=== PATIENT | female | born 1975 | race Caucasian/White ===

== ENCOUNTER 2021-05-12 08:42 | Day surgery (SDC) | payer OTHER ==
[~2021-05-12] VITALS: Ht 157.5 cm; Wt 60.3 kg
[2021-05-12] MEDS ORDERED: diphenhydrAMINE 50 MG/ML VIAL ONE (09:48)
[2021-05-12] MEDS ORDERED: MIDAZOLAM 5 MG/5 ML VIAL ONE ×2 (09:49→10:11)
[2021-05-12] MEDS ORDERED: LIDOCAINE 2% 100 MG/5 ML UJET TP ONE (09:49)
[2021-05-12] MEDS ORDERED: fentaNYL citrate 0.05 MG/ML VIAL ONE (09:49)
[2021-05-12] MEDS ORDERED: MIDAZOLAM 2 MG/2 ML VIAL IVP ONE (11:50)
[2021-05-12] MEDS ORDERED: fentaNYL citrate 0.05 MG/ML VIAL IVP ONE (11:50)
== END 2021-05-12 11:05 | disposition home or self-care (01) ==
LOC: MDS 08:42 → MMU 08:42 → MDS 11:05
PROVIDERS: ATTEND Internal Medicine Gastroenterology
DX: Z12.11 Encounter for screening for malignant neoplasm of colon (principal); Z80.0 Family history of malignant neoplasm of digestive organs
CPT/HCPCS: 45378; 81025; J1200; J2250; J3010